=== PATIENT | male | born 1975 | race Hispanic/Latino ===

== ENCOUNTER 2021-06-25 17:49 | Inpatient (IN) | payer SELFPAY ==
[~2021-06-25] VITALS: Ht 177.8 cm; Wt 113.5 kg
[2021-06-25] MEDS ORDERED: LACTATED RINGERS 1000ML 1,000 ML IV ONE (18:00)
[2021-06-25] MEDS ORDERED: FAMOTIDINE 20MG VIAL IV ONE (18:00)
[2021-06-25] MEDS ORDERED: ONDANSETRON 4MG INJ IVP ONE (18:00)
[2021-06-25] MEDS ORDERED: MAG/ALUM/SIMETH 30 ML UDCUP PO ONE (18:00)
[2021-06-25 18:10] LABS: BASOPHILS % (AUTO) 0.5 % (0.0-5.0); EOSINOPHILS % (AUTO) 0.5 % (0.0-8.0); HEMATOCRIT 31.9 % (42-54); LYMPHOCYTES % (AUTO) 24.5 % (21.0-51.0); MEAN CORPUSCULAR HEMOGLOBIN 22.3 pg (27.0-33.0); MEAN CORPUSCULAR HGB CONC 30.7 g/dL (32.0-36.0); MEAN CORPUSCULAR VOLUME 72.7 fL (79-99); MONOCYTES % (AUTO) 9.2 % (3.0-13.0); NEUTROPHILS % (AUTO) 65.3 % (40.0-77.0); PLATELET COUNT (AUTO) 18 K/uL (130-400); RED BLOOD CELL COUNT(AUTO) 4.39 MIL/uL (4.50-6.20); RED CELL DISTRIBUTION WIDTH 20.8 % (11.0-15.5); WHITE BLOOD COUNT (AUTO) 1.8 K/uL (4.8-10.8)
[2021-06-25 18:21] LABS: CREATININE 0.7 mg/dL (0.5-1.5); POTASSIUM 3.4 mmol/L (3.5-5.1)
[2021-06-25] MEDS ORDERED: LIDOCAINE HCL 2% VISCOUS 15 ML UDCUP ONE (18:25)
[2021-06-25] MEDS ORDERED: DICYCLOMINE HCL 10 MG/5 ML ML PO ONE ×2 (18:26→18:30)
[2021-06-25] MEDS ORDERED: LIDOCAINE HCL 2% VISCOUS 15 ML UDCUP PO ONE (18:30)
[2021-06-25 18:31] LABS: PLATELET MORPHOLOGY COMMENT MARKED DECREASE
[2021-06-25 18:43] LABS: ALBUMIN 3.3 g/dL (3.5-5.0); TOTAL PROTEIN, SERUM 7.5 g/dL (6.0-8.3)
[2021-06-25] MEDS ORDERED: THIAMINE HCL 100 MG/ML 2ML VIAL IVP SCH (19:00)
[2021-06-25] MEDS ORDERED: DIAZEPAM 5 MG/ML 2 ML SYG IVP ONE (19:00)
[2021-06-25] MEDS ORDERED: MORPHINE 2 MG SYG IV PRN (20:00)
[2021-06-25] MEDS ORDERED: PHARMACY COMMUNICATION MISC PRN (20:00)
[2021-06-25 20:40] LABS: INR 1.4 (0.85-1.15); PROTHROMBIN TIME 14.8 SEC (9.6-11.6)
[2021-06-25 20:41] LABS: % IRON SATURATION 14.4 % (30-44); PARTIAL THROMBOPLASTIN TIME 32.5 SEC (26.3-35.5)
[2021-06-25] MEDS: FAMOTIDINE 20MG TAB PO SCH (21:13)
[2021-06-26 02:05] VITALS: BP 126/85
[2021-06-26] MEDS: LORAZEPAM 2 MG/ML 1 ML VIAL IVP PRN ×2 (02:21→18:06)
[2021-06-26] MEDS: ONDANSETRON 4MG INJ IV PRN ×2 (02:21→10:49)
[2021-06-26 05:17] LABS: BASOPHILS % (AUTO) 0.7 % (0.0-5.0); EOSINOPHILS % (AUTO) 2.2 % (0.0-8.0); HEMATOCRIT 28.5 % (42-54); LYMPHOCYTES % (AUTO) 27.5 % (21.0-51.0); MEAN CORPUSCULAR HEMOGLOBIN 22.9 pg (27.0-33.0); MEAN CORPUSCULAR HGB CONC 30.9 g/dL (32.0-36.0); MEAN CORPUSCULAR VOLUME 74.2 fL (79-99); MONOCYTES % (AUTO) 12.3 % (3.0-13.0); NEUTROPHILS % (AUTO) 57.3 % (40.0-77.0); PLATELET COUNT (AUTO) 15 K/uL (130-400); RED BLOOD CELL COUNT(AUTO) 3.84 MIL/uL (4.50-6.20); RED CELL DISTRIBUTION WIDTH 20.9 % (11.0-15.5); WHITE BLOOD COUNT (AUTO) 1.4 K/uL (4.8-10.8)
[2021-06-26 05:29] LABS: ALBUMIN 2.8 g/dL (3.5-5.0); BILIRUBIN,TOTAL 3.2 mg/dL (0.2-1.0); CREATININE 0.7 mg/dL (0.5-1.5); MAGNESIUM 1.6 mg/dL (1.80-2.40); PHOSPHORUS 3.4 mg/dL (2.5-4.9); TOTAL PROTEIN, SERUM 6.6 g/dL (6.0-8.3)
[2021-06-26] MEDS ORDERED: POTASSIUM CHLORIDE 20MEQ/100ML 100 ML IV PRN (06:30)
[2021-06-26] MEDS ORDERED: POTASSIUM CHLORIDE 10% ELIXIR 20 MEQ/15 ML UDCUP PO PRN (06:30)
[2021-06-26] MEDS ORDERED: LIDOCAINE HCL-MPF 1% 2ML VIAL IV PRN (06:30)
[2021-06-26 08:33] VITALS: BP 130/78
[2021-06-26] MEDS: FAMOTIDINE 20MG TAB PO SCH ×2 (08:56→20:01)
[2021-06-26] MEDS: KCL 20 MEQ ERTAB PO PRN ×2 (08:57→20:01)
[2021-06-26] MEDS ORDERED: M.V.I. IV [ADULT] 10 ML, FOLIC ACID 1 MG, THIAMINE HCL 100 MG in 0.9%NACL 1000ML 1,000 ML IV SCH ×8 (09:00)
[2021-06-26] MEDS ORDERED: MAGNESIUM 2GM PREMIX 50ML 50 ML IV SCH (09:30)
[2021-06-26] MEDS: LACTATED RINGERS 1000ML 1,000 ML IV SCH (09:30)
[2021-06-26 11:27] VITALS: BP 145/80
[2021-06-26 15:22] LABS: MAGNESIUM 2.1 mg/dL (1.80-2.40); POTASSIUM 3.3 mmol/L (3.5-5.1)
[2021-06-26 16:00] VITALS: BP 128/76
[2021-06-26 20:00] VITALS: BP 160/90
[2021-06-26] MEDS ORDERED: CHLORDIAZEPOXIDE HCL 25 MG CAP PO PRN (20:00)
[2021-06-26] MEDS: CHLORDIAZEPOXIDE HCL 25 MG CAP PO PRN (20:05)
[2021-06-27] VITALS (7 sets, daily range): BP systolic 121–139; BP diastolic 65–98
[2021-06-27] MEDS: LACTATED RINGERS 1000ML 1,000 ML IV SCH (01:30)
[2021-06-27 04:30] LABS: BASOPHILS % (AUTO) 0.6 % (0.0-5.0); EOSINOPHILS % (AUTO) 2.6 % (0.0-8.0); HEMATOCRIT 30.5 % (42-54); LYMPHOCYTES % (AUTO) 26.6 % (21.0-51.0); MEAN CORPUSCULAR HEMOGLOBIN 22.7 pg (27.0-33.0); MEAN CORPUSCULAR HGB CONC 30.5 g/dL (32.0-36.0); MEAN CORPUSCULAR VOLUME 74.6 fL (79-99); MONOCYTES % (AUTO) 11.7 % (3.0-13.0); NEUTROPHILS % (AUTO) 57.9 % (40.0-77.0); PLATELET COUNT (AUTO) 16 K/uL (130-400); RED BLOOD CELL COUNT(AUTO) 4.09 MIL/uL (4.50-6.20); WHITE BLOOD COUNT (AUTO) 1.5 K/uL (4.8-10.8)
[2021-06-27 05:12] LABS: ALBUMIN 2.6 g/dL (3.5-5.0); BILIRUBIN,TOTAL 2.5 mg/dL (0.2-1.0); CREATININE 0.7 mg/dL (0.5-1.5); POTASSIUM 3.3 mmol/L (3.5-5.1); TOTAL PROTEIN, SERUM 6.5 g/dL (6.0-8.3)
[2021-06-27] MEDS: KCL 20 MEQ ERTAB PO PRN ×2 (06:36→08:14)
[2021-06-27 07:16] LABS: HEPATITIS A ANTIBODY IGM Negative (Negative); HEPATITIS B CORE IGM Negative (Negative); HEPATITIS Bs ANTIGEN SCREEN P Negative (Negative)
[2021-06-27] MEDS: FAMOTIDINE 20MG TAB PO SCH ×2 (08:13→21:15)
[2021-06-27] MEDS ORDERED: PHYTONADIONE 10 MG/1 ML AMP IM SCH (08:30)
[2021-06-27 08:55] LABS: CREATINE KINASE, TOTAL 237 U/L (21-232); MYOGLOBIN 37 ng/mL (10-92)
[2021-06-27] MEDS: THIAMINE HCL 100 MG TABLET PO SCH (09:30)
[2021-06-27] MEDS: PROPRANOLOL HCL 20 MG TAB PO SCH ×2 (09:30→21:14)
[2021-06-27] MEDS: FOLIC ACID 1 MG TABLET PO SCH (09:30)
[2021-06-27] MEDS ORDERED: LACTULOSE 20 GM/30 ML UDCUP PO PRN (10:00)
[2021-06-27 14:13] LABS: % IRON SATURATION 15.7 % (30-44)
[2021-06-27] MEDS ORDERED: TRAMADOL HCL 50 MG TABLET ONE (16:48)
[2021-06-27] MEDS ORDERED: TRAMADOL HCL 50 MG TABLET PO PRN (17:00)
[2021-06-27] MEDS: CHLORDIAZEPOXIDE HCL 25 MG CAP PO PRN (21:16)
[2021-06-28] VITALS: BP 130/81
[2021-06-28] MEDS: LORAZEPAM 2 MG/ML 1 ML VIAL IVP PRN (03:11)
[2021-06-28 04:00] VITALS: BP 118/71
[2021-06-28 04:54] LABS: BASOPHILS % (AUTO) 0.6 % (0.0-5.0); EOSINOPHILS % (AUTO) 2.3 % (0.0-8.0); HEMATOCRIT 30.6 % (42-54); LYMPHOCYTES % (AUTO) 27.9 % (21.0-51.0); MEAN CORPUSCULAR HEMOGLOBIN 22.7 pg (27.0-33.0); MEAN CORPUSCULAR HGB CONC 30.4 g/dL (32.0-36.0); MEAN CORPUSCULAR VOLUME 74.6 fL (79-99); MONOCYTES % (AUTO) 10.5 % (3.0-13.0); NEUTROPHILS % (AUTO) 58.7 % (40.0-77.0); PLATELET COUNT (AUTO) 22 K/uL (130-400); WHITE BLOOD COUNT (AUTO) 1.7 K/uL (4.8-10.8)
[2021-06-28 05:08] LABS: ALBUMIN 2.5 g/dL (3.5-5.0); BILIRUBIN,TOTAL 2.4 mg/dL (0.2-1.0); CREATININE 0.7 mg/dL (0.5-1.5); POTASSIUM 3.4 mmol/L (3.5-5.1); TOTAL PROTEIN, SERUM 6.4 g/dL (6.0-8.3)
[2021-06-28] MEDS: KCL 20 MEQ ERTAB PO PRN (06:16)
[2021-06-28] MEDS: FOLIC ACID 1 MG TABLET PO SCH ×2 (08:07→09:31)
[2021-06-28 08:20] VITALS: BP 125/88
[2021-06-28] MEDS: PROPRANOLOL HCL 20 MG TAB PO SCH (09:32)
[2021-06-28] MEDS: FAMOTIDINE 20MG TAB PO SCH (09:32)
[2021-06-28] MEDS: THIAMINE HCL 100 MG TABLET PO SCH (09:33)
[2021-06-28 10:55] VITALS: BP 134/83
[2021-06-28] MEDS ORDERED: FOLI0.4T6 PO (11:25)
[2021-06-28] MEDS ORDERED: LACT10SO9 PO (11:25)
[2021-06-28] MEDS ORDERED: THIA100T75 PO (11:25)
[2021-06-28] MEDS ORDERED: KCL 20 MEQ ERTAB PO SCH (11:30)
[2021-06-28] MEDS ORDERED: LORAZEPAM 2 MG/ML 1 ML VIAL IVP PRN (12:00)
== END 2021-06-28 14:00 | disposition home or self-care (01) | DRG 433 ==
LOC: EDH 17:49 → EDHIP 17:50 → 3CH 06-26 01:57
PROVIDERS: ADMIT Internal Medicine; ATTEND Internal Medicine
DX: K70.10 Alcoholic hepatitis without ascites (principal); M62.82 Rhabdomyolysis; D61.818 Other pancytopenia; D68.4 Acquired coagulation factor deficiency; K70.30 Alcoholic cirrhosis of liver without ascites; E87.6 Hypokalemia; F41.9 Anxiety disorder, unspecified; F10.20 Alcohol dependence, uncomplicated; R16.1 Splenomegaly, not elsewhere classified; E66.9 Obesity, unspecified; Z68.35 Body mass index [BMI] 35.0-35.9, adult
CPT/HCPCS: 36415; 70450; 71045; 74176; 80053; 80074; 82140; 82150; 82550; 82607; 82746; 83540; 83550; 83690; 83735; 83874; 84100; 84132; 84484; 85025; 85610; 85730; 86140; 86804; 87522; 93005; G0378; J2060; J2405; J3360; J3411; J3430; J3475; J3480; J3490; J7030; J7120

== ENCOUNTER 2022-01-10 00:03 | Emergency (ER) | payer OTHER ==
[~2022-01-10] VITALS: Ht 177.8 cm; Wt 98.9 kg
[~2022-01-10 00:03] MED LIST: FOLI0.4T6 PO; LACT10SO9 PO; THIA100T75 PO
[2022-01-10 00:08] VITALS: BP 135/87
[2022-01-10 00:40] LABS: EOSINOPHILS % (AUTO) 2.1 % (0.0-8.0); HEMATOCRIT 34.4 % (42-54); LYMPHOCYTES % (AUTO) 34.5 % (21.0-51.0); MEAN CORPUSCULAR HEMOGLOBIN 24.6 pg (27.0-33.0); MEAN CORPUSCULAR HGB CONC 31.4 g/dL (32.0-36.0); MEAN CORPUSCULAR VOLUME 78.4 fL (79-99); MONOCYTES % (AUTO) 11.3 % (3.0-13.0); NEUTROPHILS % (AUTO) 50.6 % (40.0-77.0); PLATELET COUNT (AUTO) 26 K/uL (130-400); RED BLOOD CELL COUNT(AUTO) 4.39 MIL/uL (4.50-6.20); WHITE BLOOD COUNT (AUTO) 1.9 K/uL (4.8-10.8)
[2022-01-10 00:51] LABS: CARBON DIOXIDE 27 mmol/L (21-32); CHLORIDE 108 mmol/L (101-111); CREATININE 0.6 mg/dL (0.5-1.5); GLOMERULAR FILTR. RATE CALC 156 mL/min (>60); GLUCOSE,RANDOM 90 mg/dL (70-105); POTASSIUM 4.2 mmol/L (3.5-5.1); SODIUM SERUM 143 mmol/L (136-145); UREA NITROGEN, BLOOD 8 mg/dL (7-18)
[2022-01-10 00:56] LABS: ALANINE AMINOTRANSFERASE 38 U/L (12-78); ALBUMIN 2.7 g/dL (3.5-5.0); ALCOHOL, BLOOD 179 mg/dL (0-10); ASPARTATE AMINOTRANSFERASE 82 U/L (10-37); CREATINE KINASE, TOTAL 113 U/L (21-232); SALICYLATE < 2.8 mg/dL (2.8-20.0); TOTAL PROTEIN, SERUM 7.6 g/dL (6.0-8.3)
[2022-01-10 00:57] LABS: ACETAMINOPHEN < 1 mcg/mL (10-29)
[2022-01-10 01:17] LABS: APPEARANCE,URINE Clear (CLEAR); BILIRUBIN,URINE Small (NEGATIVE); COLOR,URINE Dark Yellow (YELLOW); GLUCOSE, URINE (UA) Negative (NEGATIVE); KETONES,URINE 15 mg/dL (NEGATIVE); LEUKOCYTE ESTERASE ,URINE Trace (NEGATIVE); NITRATE,URINE Positive (NEGATIVE); OCCULT BLOOD,URINE Negative (NEGATIVE); PROTEIN,URINE POS 1+ mg/dL (NEGATIVE)
[2022-01-10 01:26] LABS: AMPHET/METH SCREEN,URINE NEGATIVE (NEGATIVE); BARBITURATE SCREEN, URINE NEGATIVE (NEGATIVE); BENZODIAZEPINES SCREEN,URINE POSITIVE (NEGATIVE); CANNABINOID SCREEN,URINE NEGATIVE (NEGATIVE); COCAINE SCREEN,URINE NEGATIVE (NEGATIVE); OPIATE SCREEN,URINE NEGATIVE (NEGATIVE); PHENCYCLIDINE SCREEN,URINE NEGATIVE (NEGATIVE)
[2022-01-10 01:29] LABS: BACTERIA,URINE Few /HPF (None Seen); MUCUS,URINE Few LPF (None Seen); RBC,URINE 0-1 /HPF (0-1)
[2022-01-10] MEDS ORDERED: CEPH500B PO (02:22)
[2022-01-10] MEDS ORDERED: CEPHALEXIN 500 MG CAPSULE PO ONE (02:30)
[2022-01-10] MEDS ORDERED: CHLORDIAZEPOXIDE HCL 25 MG CAP PO ONE (02:30)
== END 2022-01-10 03:32 | disposition home or self-care (01) ==
LOC: EDH 00:03
DX: K70.30 Alcoholic cirrhosis of liver without ascites (principal); N39.0 Urinary tract infection, site not specified; F41.9 Anxiety disorder, unspecified
CPT/HCPCS: 36415; 80053; 80305; 81001; 82550; 85025; 87088; 99283; G0481